=== PATIENT | female | born 1980 | race Caucasian/White ===

== ENCOUNTER 2019-11-26 12:18 | Emergency (ER) | payer SELFPAY ==
[2019-11-26 12:28] VITALS: BP 169/121; PULSE 78; RESP 18; TEMP 36.6; O2SAT 98; BMI 24.6
[2019-11-26 13:03] LABS: Basophils # 0.1 10^3/uL (0.0-0.1); Basophils % 0.7 %; Eosinophils # 0.2 10^3/uL (0.0-0.8); Eosinophils % 3.4 %; Hematocrit 58.3 % (37.0-47.0); Hemoglobin 20.6 g/dL (11.5-15.3); Lymphocytes % 29.5 %; Mean Corpuscular HGB Conc 35.3 g/dL (30.0-36.0); Mean Corpuscular Hemoglobin 35.2 pg (28.0-34.0); Mean Corpuscular Volume 99.5 fL (81-99); Mean Platelet Volume 9.3 fL (7.4-10.4); Monocytes # 0.6 10^3/uL (0.2-0.9); Monocytes % 8.8 %; Neutrophils # 3.91 10^3/uL (1.8-7.7); Neutrophils % 57.5 %; Nucleated Red Blood Cells % 0 %; Platelet Count 205 10^3/cmm (130-400); Red Blood Count 5.86 10^6/uL (4.1-5.3); Red Cell Distribution Width 11.9 % (12.1-15.1); White Blood Count 6.8 10^3/uL (4.0-10.0)
--- NOTE | 2019-11-26 13:03 | ED_ITS ---
HPI - Abdominal Pain General: Chief Complaint: Abdominal Pain Stated Complaint: lower abd pain Time Seen by Provider: 11/26/19 12:29 History of Present Illness: HPI narrative: Patient complains of abdominal pain for the last 3 days. Was seen at her primary care who did an x-ray and placed her on Cipro Flagyl and dicyclomine. Patient was able to tolerate the Flagyl. Patient has abdominal pain is worsening hurts across her lower abdomen. Has not some nausea and vomiting 2. History of diverticulitis x10 years ago. Patient has history of Crohn's. Has been taking in fluids without any problems urinating fine. Has a history of epilepsy also. MD elicited complaint: abdominal pain Pertinent past history: constipation and diverticulitis Onset (ago): day(s) Pain Consistency: constant Location: RLQ and LLQ Severity: moderate Quality: cramping and aching Exacerbating factors: movement Relieving factors: nothing Associated Symptoms: Reports constipation; Denies chills and fever(s) Review of Systems Const: Denies: fever(s), chills or body aches Eyes: Denies: change in vision or blurry vision ENMT: Denies: throat pain or nasal congestion Card: Denies: chest pain or dyspnea on exertion Resp: Denies: dyspnea, productive cough or non-productive cough GI: Reports: abdominal pain and constipation Musc: Denies: extremity pain Skin/Breast: Denies: rash Neuro: Denies: headache(s) Psych: Denies: anxiety or depression Jose Manuel/Lymph: Denies: easy bruising Physical Exam Const: COMMON NORMALS: no acute distress, average body habitus and patient oriented x3 HENMT: COMMON NORMALS: normocephalic HEAD & SCALP: normal to inspection and normocephalic FACE & SINUS: normal facial exam Eye: COMMON NORMALS: conjunctivae normal GENERAL EYE: appearance normal, both eyes and all related structures CONJUNCTIVA: Yes conjunctivae normal Neck/C-Spine: COMMON NORMALS: no JVD Chest: COMMONS NORMALS: normal inspection of the chest Resp: COMMON NORMALS: normal respiratory effort and clear to auscultation bilaterally AUSCULTATION: clear to auscultation bilaterally Cardio: COMMON NORMALS: no JVD, regular rate and regular rhythm RATE: regular rate RHYTHM: regular rhythm GI: AUSCULTATION: Yes Hypoactive bowel sounds present PALPATION: Yes Tenderness to palpation present (GI) Details: LLQ and RLQ Extremity: COMMON NORMALS: normal to inspection and full ROM Neuro: COMMON NORMALS: patient oriented x3 Course Vital Signs: Vital signs: Vital Signs Temperature 97.9 F 11/26/19 12:28 Pulse Rate 70 11/26/19 13:12 Respiratory Rate 20 H 11/26/19 13:14 Blood Pressure 145/94 11/26/19 13:12 Pulse Oximetry 97 11/26/19 13:14 MDM - Abdominal Pain MDM Narrative: Medical decision making narrative: Discussed case with Dr. Oh went over the labs CT results. Lab Data: Labs: Lab Results 11/26/19 11/26/19 11/26/19 Range/Units 12:54 12:54 13:18 WBC 6.8 (4.0-10.0) 10^3/ uL RBC 5.86 H (4.1-5.3) 10^6/u L Hgb 20.6 H (11.5-15.3) g/dL Hct 58.3 H (37.0-47.0) % MCV 99.5 H (81-99) fL MCH 35.2 H (28.0-34.0) pg MCHC 35.3 (30.0-36.0) g/dL RDW 11.9 L (12.1-15.1) % Plt Count 205 (130-400) 10^3/c mm MPV 9.3 (7.4-10.4) fL Neut % (Auto) 57.5 % Lymph % (Auto) 29.5 % [place] % (Auto) 8.8 % Eos % (Auto) 3.4 % Baso % (Auto) 0.7 % Neut # (Auto) 3.91 (1.8-7.7) 10^3/u L Lymph # (Auto) 2.0 (0.8-4.8) 10^3/u L [place] # (Auto) 0.6 (0.2-0.9) 10^3/u L Eos # (Auto) 0.2 (0.0-0.8) 10^3/u L Baso # (Auto) 0.1 (0.0-0.1) 10^3/u L Nucleated RBC % (a uto) 0 % Total Counted (0-100) Atypical Lymphs % (0-5) % Segmented Neutroph ils % Abs Segm Neuts (Ma n) (1.6-7.1) 10/cmm Band Neutrophils % Abs Band Neuts (Ma n) (0.0-1.2) 10^3/c mm Absolute Lymphocyt es (1.2-3.4) 10^3/c mm Lymphocytes (Manua l) % Monocytes (Manual) % Absolute Monocytes (0.1-0.6) 10^3/c mm Eosinophils (Manua l) % Absolute Eosinophi ls (0.0-0.7) 10^3/c mm Nucleated RBCs (0-1) /100WBC Nucleated RBCs # 0.0 /100WBC Macrocytosis Sodium 139 (136-145) mmol/L Potassium 3.2 L (3.5-5.1) mmol/L Chloride 99 (98-107) mmol/L Carbon Dioxide 30 H (22-29) mmol/L Anion Gap 13.2 (5-19) BUN 4 L (6-20) mg/dL Creatinine 0.4 L (0.5-0.9) mg/dL GFR Calculation 177.7 H (90-130) mL/min Glucose 99 (65-115) mg/dL Calculated Osmolal ity 284 L (285-295) mOsm/k g Calcium 9.0 (8.5-10.5) mg/dL Total Bilirubin 0.8 (0.15-1.2) mg/dL AST 46 H (0-32) U/L ALT 38 H (0-33) U/L Alkaline Phosphata se 100 (35-105) IU/L Total Protein 6.7 (6.6-8.7) g/dL Albumin 3.6 (3.5-5.2) g/dL Globulin 3.1 (1.3-4.6) g/dL Lipase 21 (13-60) U/L HCG, Qual Negative (Negative) Urine Color (Yellow) Urine Appearance (CLEAR) Urine pH (5-7) Ur Specific Gravit y (1.005-1.030) Urine Protein (Negative) Urine Glucose (UA) (Normal) Urine Ketones (Negative) Urine Blood (Negative) Urine Nitrate (Negative) Urine Bilirubin (NEGATIVE) Urine Urobilinogen (Negative) mg/dL Ur Leukocyte Ayana ase (Negative) 11/26/19 11/26/19 Range/Units 13:18 13:27 WBC 6.0 (4.0-10.0) 10^3/ uL RBC 5.46 H (4.1-5.3) 10^6/u L Hgb 19.0 H (11.5-15.3) g/dL Hct 54.6 H (37.0-47.0) % MCV 100.0 H (81-99) fL MCH 34.8 H (28.0-34.0) pg MCHC 34.8 (30.0-36.0) g/dL RDW 11.9 L (12.1-15.1) % Plt Count 175 (130-400) 10^3/c mm MPV 9.3 (7.4-10.4) fL Neut % (Auto) % Lymph % (Auto) % [place] % (Auto) % Eos % (Auto) % Baso % (Auto) % Neut # (Auto) (1.8-7.7) 10^3/u L Lymph # (Auto) (0.8-4.8) 10^3/u L [place] # (Auto) (0.2-0.9) 10^3/u L Eos # (Auto) (0.0-0.8) 10^3/u L Baso # (Auto) (0.0-0.1) 10^3/u L Nucleated RBC % (a uto) % Total Counted 100 (0-100) Atypical Lymphs % 5.0 (0-5) % Segmented Neutroph ils 50 % Abs Segm Neuts (Ma n) 3.0 (1.6-7.1) 10/cmm Band Neutrophils 4.0 % Abs Band Neuts (Ma n) 0.2 (0.0-1.2) 10^3/c mm Absolute Lymphocyt es 1.9 (1.2-3.4) 10^3/c mm Lymphocytes (Manua l) 26 % Monocytes (Manual) 14.0 % Absolute Monocytes 0.8 H (0.1-0.6) 10^3/c mm Eosinophils (Manua l) 1 % Absolute Eosinophi ls 0.0 (0.0-0.7) 10^3/c mm Nucleated RBCs 2.0 H (0-1) /100WBC Nucleated RBCs # /100WBC Macrocytosis 1+ H Sodium (136-145) mmol/L Potassium (3.5-5.1) mmol/L Chloride (98-107) mmol/L Carbon Dioxide (22-29) mmol/L Anion Gap (5-19) BUN (6-20) mg/dL Creatinine (0.5-0.9) mg/dL GFR Calculation (90-130) mL/min Glucose (65-115) mg/dL Calculated Osmolal ity (285-295) mOsm/k g Calcium (8.5-10.5) mg/dL Total Bilirubin (0.15-1.2) mg/dL AST (0-32) U/L ALT (0-33) U/L Alkaline Phosphata se (35-105) IU/L Total Protein (6.6-8.7) g/dL Albumin (3.5-5.2) g/dL Globulin (1.3-4.6) g/dL Lipase (13-60) U/L HCG, Qual (Negative) Urine Color Dark yellow (Yellow) Urine Appearance Clear (CLEAR) Urine pH 8 H (5-7) Ur Specific Gravit y 1.010 (1.005-1.030) Urine Protein Neg (Negative) Urine Glucose (UA) Norm (Normal) Urine Ketones Negative (Negative) Urine Blood Neg (Negative) Urine Nitrate Negative (Negative) Urine Bilirubin Neg (NEGATIVE) Urine Urobilinogen 8 H (Negative) mg/dL Ur Leukocyte Ayana ase Negative (Negative) Discharge Plan Discharge Prescriptions: No Action ibuprofen 200 mg Tablet 400 - 600 mg PO PRN RF: 0 Coding Level of Care Code ED Technical Systems Architect for Chg Fwd Exam Comprehensive
--- NOTE | 2019-11-26 13:09 | CT_ITS ---
WS: [id number] CT ABDOMEN AND PELVIS WITH CONTRAST HISTORY: Crohn's disease and diverticulitis. Abdominal pain. TECHNIQUE: Imaging performed of the abdomen and pelvis with IV contrast. Single phase imaging of the abdomen. Coronal and sagittal reformats are submitted. All CT scans at [facility] use at least one of these dose optimization techniques: automated exposure control; mA and/or kV adjustment per patient size (includes targeted exams where dose is matched to clinical indication); or iterativ e reconstruction. IV CONTRAST: Omnipaque 300; 95 mL IV. Oral contrast: No DLP: 402.97 mGy.cm COMPARISON: None available. Lower thorax: Lung bases are clear. Heart is normal size. No hiatal hernia. Liver/biliary system: Mild hepatomegaly and hepatic steatosis. No bile duct dilatation. Gallbladder: Normal. No gallstones or wall thickening. No pericholecystic fluid. Pancreas: Normal. Spleen: Normal. Adrenal glands: Normal. Right kidney: Normal. Left kidney: Normal size kidney. Nonobstructing calcification upper pole measures 9 mm. Aorta: Mild atherosclerosis with no aneurysm. Lymphadenopathy: None. Free fluid: None. GI tract: The appendix is not definitely identified. No acute inflammatory process involving the cecu m. Decreased mucosal attenuation in the distal small bowel with increased fluid and mild wall thicken ing. Similar findings extend into the proximal colon. There are additional areas of fixed significant diverticular disease in the descending and sigmoid colon. There is marked wall thickening with numer ous diverticula in the sigmoid region. Mild adjacent inflammation with moderate narrowing of the cent ral lumen. Abdominal wall: Unremarkable abdominal wall. No hernia. Pelvis: No free fluid or ascites. No adenopathy. Bones: Unremarkable. CT/CT abdomen pelvis w con* [id number] IMPRESSION: 1. Changes in the distal small bowel and proximal colon of Crohn's disease wit h only mild fluid distention and mucosal thickening. Acute on chronic changes o f Crohn's disease in the distal small bowel. No high-grade obstruction at the t erminal ileum. 2. Significant diverticular disease in the distal colon with wall thickening a nd narrowing of the lumen. Mild acute diverticulitis superimposed on chronic di verticulitis. No abscess or free fluid.
[2019-11-26 13:12] VITALS: BP 145/94; PULSE 70; RESP 20; O2SAT 98
[2019-11-26] MEDS: sodium chloride 0.9% 1,000 ML 999 ML IV (13:12)
[2019-11-26] MEDS: ondansetron 2 mg/ML SDV 2 mL 4 MG IVP (13:13)
[2019-11-26 13:14] VITALS: RESP 20; O2SAT 97
[2019-11-26] MEDS: morphine 4 mg/mL SDV 1 mL IVP ×2 (13:14→14:41)
[2019-11-26 13:22] LABS: Add Urine Microscopic? NO
[2019-11-26 13:27] LABS: HCG Qualitative Urine. Negative (Negative); Urine Appearance Clear (CLEAR); Urine Color Dark Yellow (Yellow)
[2019-11-26 13:27] LABS: Alanine Aminotransferase 38 U/L (0-33); Albumin Level 3.6 g/dL (3.5-5.2); Alkaline Phosphatase 100 IU/L (35-105); Anion Gap 13.2 (5-19); Aspartate Amino Transferase 46 U/L (0-32); Blood Urea Nitrogen 4 mg/dL (6-20); Carbon Dioxide 30 mmol/L (22-29); Chloride 99 mmol/L (98-107); Globulin 3.1 g/dL (1.3-4.6); Glomerular Filtration Rate 177.7 mL/min (90-130); Glucose 99 mg/dL (65-115); Lipase 21 U/L (13-60); Osmolality Calculated 284 mOsm/kg (285-295); Potassium 3.2 mmol/L (3.5-5.1); Sodium 139 mmol/L (136-145); Total Bilirubin 0.8 mg/dL (0.15-1.2); Total Protein 6.7 g/dL (6.6-8.7)
[2019-11-26 13:28] LABS: Bilirubin Urine Neg (NEGATIVE); Blood Urine Neg (Negative); Glucose Urine UA Norm (Normal); Ketones Urine Negative (Negative); Leukocyte Esterase Urine Negative (Negative); Nitrate Urine Negative (Negative); Protein Urine Neg (Negative); Urobilinogen Urine 8 mg/dL (Negative); pH Urine 8 (5-7)
[2019-11-26 13:39] LABS: Hematocrit 54.6 % (37.0-47.0); Mean Corpuscular HGB Conc 34.8 g/dL (30.0-36.0); Mean Corpuscular Hemoglobin 34.8 pg (28.0-34.0); Mean Platelet Volume 9.3 fL (7.4-10.4); Platelet Count 175 10^3/cmm (130-400); Red Blood Count 5.46 10^6/uL (4.1-5.3); Red Cell Distribution Width 11.9 % (12.1-15.1)
[2019-11-26] MEDS: iohexol 300 mg/mL 100 mL Btl IV (13:40)
[2019-11-26 13:52] LABS: Macrocytosis 1+
[2019-11-26 13:56] LABS: Band Neutrophils Absolute 0.2 10^3/cmm (0.0-1.2); Eosinophils 1 %; Lymphocytes 26 %; Lymphocytes Absolute 1.9 10^3/cmm (1.2-3.4); Monocytes Absolute 0.8 10^3/cmm (0.1-0.6); Segmented Neutrophils 50 %; Total Cells Counted 100 (0-100)
[2019-11-26] MEDS: potassium chloride ER 10 mEq Tablet 40 MEQ PO (14:10)
[2019-11-26 14:41] VITALS: RESP 22
[2019-11-26] MEDS: piperacillin-tazobactam 4.5 GM in sodium chloride 0.9% (plus) 50 ML IV (14:41)
[2019-11-26 14:43] LABS: Absolute Neutrophil 3.2 10^3/cmm (1.4-6.5); Platelet Estimate Normal (Normal)
[2019-11-26 15:42] VITALS: BP 130/86; PULSE 85; O2SAT 94
== END 2019-11-26 15:42 | disposition home or self-care (01) ==
PROVIDERS: Emergency Provider Nurse Practitioner Family
DX: R10.9 Unspecified abdominal pain (principal)
CPT/HCPCS: 12345; 36415; 74177; 80053; 81003; 81025; 83690; 85007; 85025; 85027; 96365; 96375; 96376; 99283; J2270; J2405; J2543; J7030; Q9967